=== PATIENT | female | born 1955 | race Caucasian/White ===

== ENCOUNTER 2017-06-17 19:17 | Inpatient (IN) | payer MEDICAID ==
[~2017-06-17] VITALS: Ht 160 cm; Wt 63.9 kg
[2017-06-17] MEDS ORDERED: PRILOSEC 20MG20 MG PO (20:39)
[2017-06-17] MEDS ORDERED: LIPITOR 40MG TA40 MG PO (20:41)
[2017-06-17] MEDS ORDERED: ISORDIL TITRADO30 MG PO (20:43)
[2017-06-17] MEDS ORDERED: COREG 6.256.25 MG/TA PO (20:43)
[2017-06-17] MEDS ORDERED: ASPIRIN E.C. 8181 MG PO (20:44)
[2017-06-17] MEDS ORDERED: APRESOLINE 25MG25 MG PO (20:46)
[2017-06-17] MEDS ORDERED: REGLAN 5MG T5 MG/TAB PO (20:46)
[2017-06-17] MEDS ORDERED: LASIX 80MG TABL80 MG PO (20:47)
[2017-06-17] MEDS ORDERED: PROTONIX20 MG PO (20:47)
[2017-06-17] MEDS ORDERED: CLARITIN 1010 MG/TAB PO (20:48)
[2017-06-17] MEDS ORDERED: ATARAX50 MG PO (20:49)
[2017-06-17] MEDS ORDERED: NORMODYNE100 MG PO (20:49)
[2017-06-17] MEDS ORDERED: ROBAXIN 75750 MG/TAB PO (20:50)
[2017-06-17] MEDS ORDERED: VALIUM 10MG10 MG/TAB PO (20:51)
[2017-06-17] MEDS ORDERED: IMITREX 25MG TA25 MG PO (20:52)
[2017-06-17] MEDS ORDERED: FLOVENT DI50 MCG/Act IH (20:53)
[2017-06-17 22:31] LABS: BASO % 0.5 % (0.0-2.0); EOS # 0.2 (0.0-0.7); EOS % 1.9 % (0-4.0); GRAN % 75.1 % (42.2-75.2); HEMATOCRIT 37.2 % (37.0-47.0); LYMPH # 1.2 (1.2-3.4); LYMPH % 15.4 % (20.0-51.0); MEAN CELL VOLUME 91 fl (80.0-100.0); MEAN CORPUSCULAR HEMOGLOBIN 29 pg (27.0-31.0); MEAN CORPUSCULAR HGB CONC 32 g/dl (33.0-37.0); MEAN PLATELET VOLUME 10.8 fl (7.4-10.4); MONO # 0.5 (0.1-0.6); MONO % 6.8 % (1.7-9.3); PLATELET COUNT 113 K/mm3 (130-400); RED BLOOD COUNT 4.08 M/mm3 (4.10-5.30); REDCELL DISTRIBUTION WIDTH-CV 13.7 % (11.5-14.5); WHITE BLOOD COUNT 7.9 K/mm3 (4.8-10.8)
[2017-06-17 22:38] LABS: PH 6 (5-8); SQUAMOUS EPITHELIAL None Seen /hpf; URINE APPEARANCE Clear; URINE BILIRUBIN Negative (NEGATIVE); URINE BLOOD Negative (NEGATIVE); URINE COLOR Yellow; URINE GLUCOSE Negative (NEGATIVE); URINE KETONE Negative (NEGATIVE); URINE RBC None Seen /hpf; URINE UROBILINOGEN Negative (NEGATIVE); URINE WBC None Seen /hpf
[2017-06-17 22:40] LABS: ADJUSTED CALCIUM 7.3 mg/dL (8.4-10.2); ALBUMIN 4.5 gm/dL (3.5-5.0); CALCIUM 7.7 mg/dL (8.4-10.2); MAGNESIUM 1.5 mg/dL (1.6-2.3); PHOSPHOROUS 8.5 mg/dL (2.5-4.5); TOTAL PROTEIN 8.1 gm/dL (6.4-8.2)
[2017-06-17 22:46] LABS: CREATININE, serum 9.62 mg/dL (0.52-1.25); POTASSIUM 6.1 mmol/L (3.4-5.0)
[2017-06-18] VITALS (164 sets, daily range): BP systolic 139–165; BP diastolic 61–77; PULSE 60–71; TEMP 97.4–98.9; O2SAT 86–99
[2017-06-18 10:06] LABS: BASO % 0.4 % (0.0-2.0); EOS # 0.1 (0.0-0.7); EOS % 1.7 % (0-4.0); GRAN # 5.6 (1.4-6.5); GRAN % 78.2 % (42.2-75.2); LYMPH % 13.5 % (20.0-51.0); MEAN CELL VOLUME 92 fl (80.0-100.0); MEAN CORPUSCULAR HGB CONC 32 g/dl (33.0-37.0); MEAN PLATELET VOLUME 10.2 fl (7.4-10.4); MONO # 0.4 (0.1-0.6); MONO % 5.8 % (1.7-9.3); PLATELET COUNT 112 K/mm3 (130-400); RED BLOOD COUNT 3.91 M/mm3 (4.10-5.30); REDCELL DISTRIBUTION WIDTH-CV 13.9 % (11.5-14.5); WHITE BLOOD COUNT 7.2 K/mm3 (4.8-10.8)
[2017-06-18 10:07] LABS: HEMOGLOBIN 11.6 g/dl (12.5-16.0); MEAN CORPUSCULAR HEMOGLOBIN 30 pg (27.0-31.0)
[2017-06-18 10:18] LABS: CALCIUM 7.9 mg/dL (8.4-10.2)
[2017-06-18 10:28] LABS: CREATININE, serum 9.92 mg/dL (0.52-1.25)
[2017-06-18 10:29] LABS: POTASSIUM 6.1 mmol/L (3.4-5.0)
[2017-06-18 23:05] LABS: HEPATITIS B SURFACE AB-QL Positive (())
[2017-06-19 18:13] LABS: HEPATITIS B CORE AB,TOTAL Positive (())
== END 2017-06-18 18:15 | disposition home or self-care (01) | DRG 304 ==
LOC: COL.ER 19:17 → MEDICAL 20:30
PROVIDERS: Emergency Medicine; Internal Medicine
PROC: 5A1D60Z (ICD-10-PCS; principal; 2017-06-17)
DX: I16.1 Hypertensive emergency (principal); N18.6 End stage renal disease; T82.41XA Breakdown (mechanical) of vascular dialysis catheter, initial encounter; I12.0 Hypertensive chronic kidney disease with stage 5 chronic kidney disease or end stage renal disease; Z66 Do not resuscitate; K21.9 Gastro-esophageal reflux disease without esophagitis; F17.210 Nicotine dependence, cigarettes, uncomplicated; I25.10 Atherosclerotic heart disease of native coronary artery without angina pectoris
CPT/HCPCS: J1650; J2997

== ENCOUNTER 2017-06-22 10:37 | Inpatient (IN) | payer MEDICAID ==
[~2017-06-22] VITALS: Ht 160 cm; Wt 72.0 kg
[~2017-06-22 10:37] MED LIST: APRESOLINE 25MG25 MG PO; ASPIRIN E.C. 8181 MG PO; ATARAX50 MG PO; CLARITIN 1010 MG/TAB PO; COREG 6.256.25 MG/TA PO; FLOVENT DI50 MCG/Act IH; IMITREX 25MG TA25 MG PO; ISORDIL TITRADO30 MG PO; LASIX 80MG TABL80 MG PO; LIPITOR 40MG TA40 MG PO; NORMODYNE100 MG PO; PRILOSEC 20MG20 MG PO; PROTONIX20 MG PO; REGLAN 5MG T5 MG/TAB PO; ROBAXIN 75750 MG/TAB PO; VALIUM 10MG10 MG/TAB PO
[2017-06-22 11:45] LABS: BASO # 0.1 (0.0-0.2); BASO % 0.9 % (0.0-2.0); EOS # 0.2 (0.0-0.7); EOS % 2.6 % (0-4.0); GRAN # 3.8 (1.4-6.5); GRAN % 67.3 % (42.2-75.2); LYMPH # 1.2 (1.2-3.4); LYMPH % 21.8 % (20.0-51.0); MEAN CELL VOLUME 92 fl (80.0-100.0); MEAN CORPUSCULAR HGB CONC 32 g/dl (33.0-37.0); MEAN PLATELET VOLUME 10.8 fl (7.4-10.4); MONO # 0.4 (0.1-0.6); MONO % 7.2 % (1.7-9.3); PLATELET COUNT 111 K/mm3 (130-400); RED BLOOD COUNT 3.62 M/mm3 (4.10-5.30); REDCELL DISTRIBUTION WIDTH-CV 13.5 % (11.5-14.5); WHITE BLOOD COUNT 5.7 K/mm3 (4.8-10.8)
[2017-06-22 11:50] LABS: HEMATOCRIT 33.4 % (37.0-47.0); HEMOGLOBIN 10.7 g/dl (12.5-16.0); MEAN CORPUSCULAR HEMOGLOBIN 30 pg (27.0-31.0)
[2017-06-22 11:59] LABS: ADJUSTED CALCIUM 7.7 mg/dL (8.4-10.2); ALBUMIN 4.4 gm/dL (3.5-5.0); BILIRUBIN,TOTAL 0.8 mg/dL (0.0-1.0); MAGNESIUM 1.5 mg/dL (1.6-2.3); PHOSPHOROUS 7.3 mg/dL (2.5-4.5); TOTAL PROTEIN 7.7 gm/dL (6.4-8.2)
[2017-06-22 12:01] LABS: CREATININE, serum 9.07 mg/dL (0.52-1.25)
[2017-06-22 12:02] LABS: POTASSIUM 6.3 mmol/L (3.4-5.0)
[2017-06-22 16:02] VITALS: BP 159/78; PULSE 70; TEMP 98.3
[2017-06-22 19:56] VITALS: BP 177/94; PULSE 71; TEMP 98.3
== END 2017-06-22 20:25 | disposition home or self-care (01) | DRG 640 ==
LOC: COL.ER 10:37 → MEDICAL 12:26
PROVIDERS: Emergency Medicine
PROC: 5A1D00Z (ICD-10-PCS; principal; 2017-06-22)
DX: E87.5 Hyperkalemia (principal); N18.6 End stage renal disease; I16.1 Hypertensive emergency; I12.0 Hypertensive chronic kidney disease with stage 5 chronic kidney disease or end stage renal disease; F17.210 Nicotine dependence, cigarettes, uncomplicated; Z99.2 Dependence on renal dialysis; E87.70 Fluid overload, unspecified; Z91.15 Patient's noncompliance with renal dialysis
CPT/HCPCS: J1644